=== PATIENT | female | born 1980 | race African-American/Black ===

== ENCOUNTER 2016-12-21 16:36 | Day surgery (SDC) | payer BC, OTHER ==
[2016-12-21 16:58] VITALS: BP 121/69; PULSE 80; TEMP 98.2; BMI 36.5
[2016-12-21] MEDS ORDERED: IRON SUCROSE INJECTION 100 MG in SODIUM CHLORIDE 100 ML IVPB ONE (17:30)
== END 2016-12-21 18:40 | disposition home or self-care (01) ==
LOC: FINFUSION 16:36 → FM/S 16:41 → FINFUSION 18:40
PROVIDERS: ATTEND Internal Medicine Hematology & Oncology
PROC: 3E033GC Introduction of Other Therapeutic Substance into Peripheral Vein, Percutaneous Approach (ICD-10-PCS; principal; 2016-12-21)
DX: D50.9 Iron deficiency anemia, unspecified (principal)
CPT/HCPCS: 96365; J1756

== ENCOUNTER 2016-12-28 18:51 | Day surgery (SDC) | payer BC, OTHER ==
[2016-12-28 19:38] VITALS: BP 128/78; PULSE 72; TEMP 98.7
[2016-12-28] MEDS ORDERED: IRON SUCROSE INJECTION 100 MG in SODIUM CHLORIDE 100 ML IVPB ONE (19:45)
== END 2016-12-28 20:10 | disposition home or self-care (01) ==
LOC: FINFUSION 18:51 → FM/S 18:53 → FINFUSION 20:10
PROVIDERS: ATTEND Internal Medicine Hematology & Oncology
PROC: 3E033GC Introduction of Other Therapeutic Substance into Peripheral Vein, Percutaneous Approach (ICD-10-PCS; principal; 2016-12-28)
DX: D64.9 Anemia, unspecified (principal)
CPT/HCPCS: 96365; J1756

== ENCOUNTER 2017-01-18 17:36 | Day surgery (SDC) | payer BC, OTHER ==
[2017-01-18 18:30] VITALS: BP 115/61; TEMP 98.4; BMI 39.5
[2017-01-18] MEDS ORDERED: IRON SUCROSE INJECTION 100 MG in SODIUM CHLORIDE 100 ML IVPB ONE (18:30)
[2017-01-18 18:35] VITALS: PULSE 82
== END 2017-01-18 18:45 | disposition home or self-care (01) ==
LOC: FINFUSION 17:36 → FM/S 17:37 → FINFUSION 18:45
PROVIDERS: ATTEND Internal Medicine Hematology & Oncology
PROC: 3E033GC Introduction of Other Therapeutic Substance into Peripheral Vein, Percutaneous Approach (ICD-10-PCS; principal; 2017-01-18)
DX: D64.9 Anemia, unspecified (principal)
CPT/HCPCS: 96365; J1756

== ENCOUNTER 2017-03-09 19:50 | Day surgery (SDC) | payer BC, OTHER ==
[2017-03-09 20:22] VITALS: BP 117/68; PULSE 93; TEMP 98.4
== END 2017-03-09 20:20 | disposition home or self-care (01) ==
LOC: FINFUSION 19:50 → FM/S 19:51 → FINFUSION 20:20
PROVIDERS: ATTEND Internal Medicine Hematology & Oncology
PROC: 3E033GC Introduction of Other Therapeutic Substance into Peripheral Vein, Percutaneous Approach (ICD-10-PCS; principal; 2017-03-09)
DX: D50.9 Iron deficiency anemia, unspecified (principal)
CPT/HCPCS: 96365

== ENCOUNTER 2017-03-14 17:25 | Emergency (ER) | payer BC, OTHER ==
--- NOTE | 2017-03-14 17:27 | PDOC ---
History of Present Illness - General History Source: Patient Exam Limitations: No Limitations <Steffany Vasquez - Last Filed: 03/14/17 18:37> - General History Source: Patient Exam Limitations: No Limitations - History of Present Illness Initial Comments: 03/14/17 17:46 The patient is a 37 year old female, with significant past medical history of right leg DVT (2006), anemia (iron infusions weekly), and lap band surgery (2009 ), who presents today complaining of 3 days of bilateral lower extremity swelling. The patient states that her lower extremities are not painful, but there is some discomfort. She notes that her legs are normal size in the morning after elevating them throughout the night. 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 She reports that her last DVT occurred after having a . Denies chest pain, SOB, palpitations. Denies recent travel. Denies use of oral contraceptives. Denies abdominal pain Denies fevers, chills. Allergies: erythromycin Surgical Hx: Lap band surgery. . Social Hx: No tobacco use PCP- Dr. Lilia casanova <Hetal Ambrose - Last Filed: 03/14/17 18:43> - General Chief Complaint: Edema Stated Complaint: LEG SWELLING Time Seen by Provider: 03/14/17 17:27 Past History - Past Medical History Anemia: Yes Asthma: No Cancer: No Cardiac Disorders: No CVA: No COPD: No CHF: No Dementia: No Diabetes: No GI Disorders: No Disorders: No HTN: No Hypercholesterolemia: No Liver Disease: No Seizures: No Thyroid Disease: No - Surgical History Abdominal Surgery: Yes (lap band 2009) Appendectomy: No Cardiac Surgery: No Cholecystectomy: No Lung Surgery: No Neurologic Surgery: No Orthopedic Surgery: No - Psycho/Social/Smoking Cessation Hx Anxiety: No Suicidal Ideation: No Smoking History: Never smoked Have you smoked in the past 12 months: No Hx Alcohol Use: No Drug/Substance Use Hx: No Substance Use Type: None Hx Substance Use Treatment: No <Steffany Vasquez - Last Filed: 03/14/17 18:37> <Hetal Ambrose - Last Filed: 03/14/17 18:43> - Past Medical History Allergies/Adverse Reactions: Allergies Allergy/AdvReac Type Severity Reaction Status Date / Time erythromycin base Allergy Unknown Verified 03/14/17 17:36 Home Medications: Ambulatory Orders NK [No Known Home Medication] 03/14/17 Review of Systems - Review of Systems Able to Perform ROS?: Yes Comments:: 03/14/17 17:46 GENERAL/CONSTITUTIONAL: No: fever, chills, weakness, loss of appetite. HEAD, EYES, EARS, NOSE AND THROAT: No: change in vision, ear pain, discharge, sore throat, throat swelling. CARDIOVASCULAR: No: chest pain, lightheadedness, palpitations, syncope RESPIRATORY: No: cough, shortness of breath, wheezing, hemoptysis, stridor. GASTROINTESTINAL: No: nausea, vomiting, abdominal cramping, diarrhea, rectal bleeding, constipation. GENITOURINARY: No: dysuria, hematuria, frequency, urgency, flank pain. MUSCULOSKELETAL: Yes: bilateral lower extremity swelling No: back pain, neck pain, joint pain, muscle swelling or pain SKIN: No: lesions, pallor, rash or easy bruising. NEUROLOGIC: No: headache, vertigo, paresthesias, weakness ENDOCRINE: No: unexplained weight gain or loss HEMATOLOGIC/LYMPHATIC: No: anemia, easy bleeding, swelling nodes <Hetal Ambrose - Last Filed: 03/14/17 18:43> *Physical Exam - Vital Signs Last Vital Signs Temp Pulse Resp BP Pulse Ox 98.0 F 78 15 129/82 99 03/14/17 17:26 03/14/17 17:26 03/14/17 17:26 03/14/17 17:26 03/14/17 17:26 - Physical Exam Comments: 03/14/17 17:47 GENERAL: The patient is in no acute distress. HEAD: Normal with no signs of trauma. EYES: PERRLA, EOMI, sclera anicteric, conjunctiva clear. ENT: Ears normal, nares patent, oropharynx clear without exudates. Moist mucous membranes. NECK: Normal range of motion, supple without lymphadenopathy, JVD, or masses. LUNGS: Breath sounds equal, clear to auscultation bilaterally. No wheezes, and no crackles. HEART:Regular rate and rhythm, normal S1 and S2 without murmur, rub or gallop. ABDOMEN: Soft, nontender, normoactive bowel sounds. No guarding, no rebound. EXTREMITIES: 3 + pitting edema up to the knees bilaterally. Normal range of motion. No clubbing or cyanosis. No erythema, or tenderness. NEUROLOGICAL: Cranial nerves II through XII grossly intact. Normal speech. No focal neurological deficits. MUSCULOSKELETAL: Back nontender to palpation, no CVA tenderness SKIN: Warm, Dry, normal turgor, no rashes or lesions noted. <Hetal Ambrose - Last Filed: 03/14/17 18:43> ED Treatment Course - RADIOLOGY Radiograph Interpretation: 03/14/17 18:43 EXAM#: TYPE/EXAM: RESULT: [id number] US/DUPLEX VASCUL US-2LEGS Bilateral leg edema. Rule out DVT. Bilateral leg Doppler venous ultrasound Grayscale, pulsed Doppler and color Doppler interrogation of both lower extremities deep venous system was performed. The common femoral vein, superficial femoral vein, popliteal and posterior tibial vein were identified, bilaterally with a normal phasic wave form, adequate compressibility and adequate response to augmentation. Visualized portion of the greater saphenous and deep femoral vein are patent No Suero's cyst is identified in the popliteal fossa, bilaterally. Impression: There is no evidence of deep venous thromboses in both lower extremities. Reported By: Nino Goldberg MD 03/14/17 182 <Hetal Ambrose - Last Filed: 03/14/17 18:43> Medical Decision Making - Medical Decision Making 03/14/17 17:27 A portion of this note was documented by scribe services under my direction. I have reviewed the details of the note, within reason, and agree with the documentation with the following case summary and management plan written by me. 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 and is on her feet for long periods of time No pain No recent travel No OCPs No tobacco use No h/o heart disease or heart failure No renal insufficiency or renal failure Will check US Pt Urine appears cloudy, will send UA 03/14/17 18:38 Duplex negative Pt symptoms likely related to dependent edema Will discharge to home <Steffany Vasquez - Last Filed: 03/14/17 18:37> *DC/Admit/Observation/Transfer - Discharge Dispostion Admit: No <Steffany Vasquez Last Filed: 03/14/17 18:37> - Attestations Scribe Attestion: 03/14/17 17:49 Documentation prepared by BABS Batista, acting as health care / medical job titles for Steffany Vasquez MD. <Hetal Ambrose - Last Filed: 03/14/17 18:43> Diagnosis at time of Disposition: Leg swelling, Dependent edema - Discharge Dispostion Disposition: HOME Condition at time of disposition: Stable - Referrals Referrals: Lilia Casanova [Primary Care Provider] - - Patient Instructions Printed Discharge Instructions: DI for Dependent Edema Additional Instructions: Ms. Medinaters Thank you for coming in to the ER Please follow up with your primary care physician Please elevate your legs as much as possible as this will help with your swelling If your legs remain swollen, please follow up with your primary care physician for repeat ultrasound If you develop chest pain, shortness of breath, palpitations, please come in to the ER - Post Discharge Activity Work/School Note: Back to Work
[2017-03-14 17:45] VITALS: BP 129/82; PULSE 78; TEMP 98; BMI 37.4
[2017-03-14 17:45] LABS: PH,URINE 6.5 (4.5-8); URINE APPEARANCE Cloudy; URINE BILIRUBIN Negative (NEGATIVE); URINE BLOOD Negative (NEGATIVE); URINE GLUCOSE (UA) Negative (NEGATIVE); URINE KETONE Negative (NEGATIVE); URINE LEUK ESTERASE Trace (NEGATIVE); URINE NITRITE Negative (NEGATIVE); URINE PROTEIN Negative (NEGATIVE); URINE UROBILINOGEN 1.0 E.U/dl (0.2-1.0)
[2017-03-14 17:47] LABS: URINE COLOR YELLOW
== END 2017-03-14 19:01 | disposition home or self-care (01) ==
LOC: FER 17:25
DX: R60.9 Edema, unspecified (principal); M79.89 Other specified soft tissue disorders
CPT/HCPCS: 81003; 84703; 87086; 93970-TC; 99282-25

== ENCOUNTER 2017-07-20 20:31 | Emergency (ER) | payer BC, OTHER ==
--- NOTE | 2017-07-20 20:33 | PDOC ---
History of Present Illness - History of Present Illness Initial Comments: 07/20/17 21:32 The patient is a 37 year old female, with a significant past medical history of right leg DVT (2006), anemia, lap band surgery (2009), who presents to the emergency department with persistent increased urinary frequency and pressure despite taking over the counter Azo for the past 3 days. She states this feels just like her prior UTIs in the past. She presents for a prescription for something stronger than the OTC stuff. She reports she is currently on her menstrual period. She denies chest pain, shortness of breath, headache and dizziness. She denies fever, chills, nausea, vomit, diarrhea and constipation. She denies dysuria, urgency and hematuria. Allergies: erythromycin Surgical Hx: Lap band surgery. . Social Hx: No tobacco use PCP- Dr. Lilia john <Nika Coburn - Last Filed: 07/20/17 21:32> <Kary Marques - Last Filed: 07/21/17 01:37> - General Chief Complaint: Urinary Problem Stated Complaint: urinary freq Time Seen by Provider: 07/20/17 20:33 Past History <Nika Coburn - Last Filed: 07/20/17 21:32> - Past Medical History Anemia: Yes Asthma: No Cancer: No Cardiac Disorders: No CVA: No COPD: No CHF: No Dementia: No Diabetes: No GI Disorders: No Disorders: No HTN: No Hypercholesterolemia: No Liver Disease: No Seizures: No Thyroid Disease: No - Surgical History Abdominal Surgery: Yes (lap band 2009) Appendectomy: No Cardiac Surgery: No Cholecystectomy: No Lung Surgery: No Neurologic Surgery: No Orthopedic Surgery: No - Suicide/Smoking/Psychosocial Hx Smoking History: Never smoked Have you smoked in the past 12 months: No Hx Alcohol Use: No Drug/Substance Use Hx: No Substance Use Type: None Hx Substance Use Treatment: No <Kary Marques - Last Filed: 07/21/17 01:37> - Past Medical History Allergies/Adverse Reactions: Allergies Allergy/AdvReac Type Severity Reaction Status Date / Time erythromycin base Allergy Unknown Verified 07/20/17 20:32 Home Medications: Ambulatory Orders Ciprofloxacin [Cipro -] 250 mg PO BID #10 tablet 07/20/17 Review of Systems - Review of Systems Able to Perform ROS?: Yes Comments:: 07/20/17 21:33 CONSTITUTIONAL: Absent: fever, chills, diaphoresis, generalized weakness, malaise, loss of appetite HEENT: Absent: rhinorrhea, nasal congestion, throat pain, throat swelling, difficulty swallowing,mouth swelling, ear pain, eye pain, visual Changes CARDIOVASCULAR: Absent: chest pain, syncope, palpitations, irregular heart rate, lightheadedness , peripheral edema RESPIRATORY: Absent: cough, shortness of breath, dyspnea with exertion, orthopnea, wheezing, stridor, hemoptysis GASTROINTESTINAL: Absent: abdominal pain, abdominal distension, nausea, vomiting, diarrhea, constipation, melena, hematochezia GENITOURINARY: (+) increased frequency and pressure on urination. Absent: dysuria, urgency, hesitancy, hematuria, flank pain, genital pain MUSCULOSKELETAL: Absent: myalgia, arthralgia, joint swelling SKIN: Absent: rash, itching, pallor HEMATOLOGIC/IMMUNOLOGIC: Absent: easy bleeding, easy bruising, lymphadenopathy, frequent infections ENDOCRINE: Absent: unexplained weight gain, unexplained weight loss, heat intolerance, cold intolerance NEUROLOGIC: Absent: headache, focal weakness or paresthesias, dizziness, unsteady gait, seizure, mental status changes, bladder or bowel incontinence PSYCHIATRIC: Absent: anxiety, depression, suicidal or homicidal ideation, hallucinations. <Nika Coburn - Last Filed: 07/20/17 21:32> *Physical Exam - Vital Signs Last Vital Signs Temp Pulse Resp BP Pulse Ox 98.3 F 75 16 112/74 100 07/20/17 20:31 07/20/17 20:31 07/20/17 20:31 07/20/17 20:31 07/20/17 20:31 - Physical Exam Comments: 07/20/17 21:34 GENERAL: The patient is awake, alert, and fully oriented, in no acute distress. HEAD: Normal with no signs of trauma. EYES: Pupils equal, round and reactive to light, extraocular movements intact, sclera anicteric, conjunctiva clear with no pallor. ENT: Ears normal, nares patent, oropharynx clear without exudates. Moist mucous membranes. NECK: Normal range of motion, supple without lymphadenopathy, JVD, or masses. LUNGS: Breath sounds equal, clear to auscultation bilaterally. No wheeze/ crackles. HEART: Regular rate and rhythm, normal S1 and S2 without murmur or rub. ABDOMEN: Soft/nontender/nondistended. BS wnl. No guarding or rebound. No palpable masses. No hepatosplenomegaly. EXTREMITIES: Normal range of motion, no edema. No clubbing or cyanosis. No cords , erythema, or tenderness. MUSCULOSKELETAL: No CVA tenderness. NEUROLOGICAL: Cranial nerves II through XII grossly intact. Normal speech, normal gait. PSYCH: Normal mood, normal affect. SKIN: Warm, Dry, normal turgor, no rashes or lesions noted. <Nika Coburn - Last Filed: 07/20/17 21:32> ED Treatment Course - ADDITIONAL ORDERS Additional order review: Laboratory Results 07/20/17 20:36 Urine Color Yellow Urine Appearance Clear Urine pH 6.0 Ur Specific [place] >= 1.030 H Urine Protein 1+ H Urine Glucose (UA) Negative Urine Ketones Trace Urine Blood 2+ H Urine Nitrite Negative Urine Bilirubin Negative Urine Urobilinogen 0.2 Urine HCG, Qual Negative <Nika Coburn - Last Filed: 07/20/17 21:32> Progress Note - Progress Note Progress Note: Documentation has been prepared under my direction and personally reviewed by me in its entirety. I attest that this documented accurately reflects all work, treatment, procedures and medical decision making performed by me. <Kary Marques - Last Filed: 07/21/17 01:37> Medical Decision Making - Medical Decision Making As noted above, this 37-year-old woman presents with a few day history of urinary frequency/urgency. She denies dysuria/hematuria or nausea/back pain/ fever. She states that symptoms are consistent with previous UTI symptoms. Exam as noted. Urinalysis shows red blood cells/white blood cells and few bacteria/few epithelial cells. Urine culture and sensitivity pending Patient will be started on ciprofloxacin 250 mg twice a day for 5 days. First dose given here in the emergency room. Patient advised to drink plenty of fluids and to return to the ER if she has worsening urinary frequency or experiences back pain/vomiting/fever. <Kary Marques - Last Filed: 07/21/17 01:37> *DC/Admit/Observation/Transfer - Attestations Scribe Attestion: 07/20/17 21:34 Documentation prepared by Nika Coburn, acting as center medical and lab director for Kary Marques MD <Nika Coburn - Last Filed: 07/20/17 21:32> <Kary Marques - Last Filed: 07/21/17 01:37> Diagnosis at time of Disposition: UTI (urinary tract infection) Qualifiers: Urinary tract infection type: acute cystitis Hematuria presence: without hematuria Qualified Code(s): N30.00 - Acute cystitis without hematuria - Discharge Dispostion Disposition: HOME Condition at time of disposition: Stable - Prescriptions Prescriptions: Ciprofloxacin [Cipro -] 250 mg PO BID #10 tablet - Patient Instructions Printed Discharge Instructions: DI for Urinary Tract Infection (UTI) Additional Instructions: Drink plenty of water Ciprofloxacin 250 mg twice a day for 5 days Return to ER if you have fever/chills, back pain or vomiting Follow-up with your general doctor within the next week
[2017-07-20 20:39] VITALS: BP 112/74; PULSE 75; TEMP 98.3; BMI 38.6
[2017-07-20 20:45] LABS: URINE APPEARANCE Clear; URINE BILIRUBIN Negative (NEGATIVE); URINE BLOOD 2+ (NEGATIVE); URINE COLOR YELLOW; URINE GLUCOSE (UA) Negative (NEGATIVE); URINE KETONE Trace (NEGATIVE); URINE LEUK ESTERASE Negative (NEGATIVE); URINE NITRITE Negative (NEGATIVE); URINE PROTEIN 1+ (NEGATIVE); URINE UROBILINOGEN 0.2 (0.2-1.0)
[2017-07-20 21:32] LABS: URINE RBC 15-30 /hpf (0-3)
[2017-07-20 21:33] LABS: URINE BACTERIA FEW /hpf (NEGATIVE)
[2017-07-20] MEDS ORDERED: CIPROFLOXACIN 250 MG TABLET (RESTRICTED TO ID) PO ONE ×2 (21:36→21:43)
== END 2017-07-20 21:45 | disposition home or self-care (01) ==
LOC: FER 20:31
DX: N30.00 Acute cystitis without hematuria (principal); Z86.718 Personal history of other venous thrombosis and embolism; Z98.84 Bariatric surgery status
CPT/HCPCS: 81003; 81015; 84703; 87086; 99282-25

== ENCOUNTER 2018-10-01 23:28 | Emergency (ER) | payer BC, OTHER ==
--- NOTE | 2018-10-01 23:31 | PDOC ---
History of Present Illness - General History Source: Patient Exam Limitations: No Limitations - History of Present Illness Initial Comments: 10/01/18 23:56 The patient is a 38 year old female, with a significant past medical history of anemia, superficial DVTs, and DVT (07 after ), who presents to the emergency department with, left upper extremity pain. Patient was previously at urgent care who advised her to report to the ER for evaluation for possible DVT of the LUE. 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 During her admission, she had a negative head CT, abdominal CT with contrast, and received heparin injections. She endorses that she has had multiple superficial DVTs and one DVT thus, prompting her visit to the ER tonight. She denies any pain to the bilateral LE or right UE. She denies recent fevers, chills, headache or dizziness. She denies recent nausea, vomit, diarrhea or constipation. She denies recent dysuria, frequency, urgency or hematuria. She denies recent chest pain or shortness of breath. Allergies: erythromycin Past surgical history: Lap band surgery. . Social history: Nonsmoker. Denies EtOH use and recreational drug use. Primary Care Physician: Dr. Lilia Casanova <Kristine Cornell - Last Filed: 10/01/18 23:58> <Mundo Rojas - Last Filed: 10/02/18 01:42> - General Stated Complaint: DVT IN LEFT ARM Time Seen by Provider: 10/01/18 23:30 Past History <Kristine Cornell - Last Filed: 10/01/18 23:58> - Past Medical History Anemia: Yes Asthma: No Cancer: No Cardiac Disorders: No CVA: No COPD: No CHF: No Dementia: No Diabetes: No GI Disorders: No Disorders: No HTN: No Hypercholesterolemia: No Liver Disease: No Seizures: No Thyroid Disease: No - Surgical History Abdominal Surgery: Yes (lap band 2009) Appendectomy: No Cardiac Surgery: No Cholecystectomy: No Lung Surgery: No Neurologic Surgery: No Orthopedic Surgery: No - Suicide/Smoking/Psychosocial Hx Smoking History: Never smoked Have you smoked in the past 12 months: No Hx Alcohol Use: No Drug/Substance Use Hx: No Substance Use Type: None Hx Substance Use Treatment: No <Mundo Rojas - Last Filed: 10/02/18 01:42> - Past Medical History Allergies/Adverse Reactions: Allergies Allergy/AdvReac Type Severity Reaction Status Date / Time erythromycin base Allergy Unknown Verified 07/20/17 20:32 IV contrast Allergy Uncoded 10/01/18 23:56 Home Medications: Ambulatory Orders Famotidine [Pepcid] 20 mg PO DAILY 10/01/18 Review of Systems - Review of Systems Able to Perform ROS?: Yes Comments:: 10/01/18 23:57 GENERAL/CONSTITUTIONAL: No fever or chills. No weakness. HEAD, EYES, EARS, NOSE AND THROAT: No change in vision. No ear pain or discharge. No sore throat. CARDIOVASCULAR: No chest pain or shortness of breath. RESPIRATORY: No cough, wheezing, or hemoptysis. GASTROINTESTINAL: No nausea, vomiting, diarrhea or constipation. GENITOURINARY: No dysuria, frequency, or change in urination. +MUSCULOSKELETAL: LUE pain. SKIN: No rash NEUROLOGIC: No headache, vertigo, loss of consciousness, or change in strength/ sensation. ENDOCRINE: No increased thirst. No abnormal weight change. HEMATOLOGIC/LYMPHATIC: No anemia, easy bleeding, or history of blood clots. ALLERGIC/IMMUNOLOGIC: No hives or skin allergy. All Other Systems: Reviewed and Negative <Kristine Cornell - Last Filed: 10/01/18 23:58> *Physical Exam - Vital Signs Last Vital Signs Temp Pulse Resp BP Pulse Ox 98.3 F 100 H 14 120/75 100 10/01/18 23:43 10/01/18 23:43 10/01/18 23:43 10/01/18 23:43 10/01/18 23:43 <Kristine Cornell - Last Filed: 10/01/18 23:58> Moderate Sedation - Procedure Monitoring Vital Signs: Procedure Monitoring Vital Signs Temperature 98.3 F 10/01/18 23:43 Pulse Rate 100 H 10/01/18 23:43 Respiratory Rate 14 10/01/18 23:43 Blood Pressure 120/75 10/01/18 23:43 O2 Sat by Pulse Oximetry (%) 100 10/01/18 23:43 <Kristine Cornell - Last Filed: 10/01/18 23:58> Medical Decision Making - Medical Decision Making 10/01/18 23:58 GENERAL: Awake, alert, and fully oriented, in no acute distress HEAD: No signs of trauma EYES: PERRLA, EOMI, sclera anicteric, conjunctiva clear ENT: Auricles normal inspection, hearing grossly normal, nares patent, oropharynx clear without exudates. Moist mucosa NECK: Normal ROM, supple, no lymphadenopathy, JVD, or masses LUNGS: Breath sounds equal, clear to auscultation bilaterally. No wheezes, and no crackles HEART: Regular rate and rhythm, normal S1 and S2, no murmurs, rubs or gallops ABDOMEN: Soft, nontender, normoactive bowel sounds. No guarding, no rebound. No masses EXTREMITIES: LUE: Tender cord over bicep. NEUROLOGICAL: Cranial nerves II through XII grossly intact. Normal speech, normal gait SKIN: Warm, Dry, normal turgor, no rashes or lesions noted. <Kristine Cornell - Last Filed: 10/01/18 23:58> - Medical Decision Making 10/02/18 01:39 POC US: thrombosis in superficial vein that does not extend to deep system a/p superficial thrombophlebitis nsaids warm compresses <Mundo Rojas - Last Filed: 10/02/18 01:42> *DC/Admit/Observation/Transfer - Attestations Scribe Attestion: 10/01/18 23:57 Documentation prepared by Kristine Cornell, acting as medical imaging tech for Mundo Rojas MD. <Kristine Cornell - Last Filed: 10/01/18 23:58> <Mundo Rojas - Last Filed: 10/02/18 01:42> Diagnosis at time of Disposition: Superficial thrombophlebitis Qualifiers: Superficial thrombophlebitis-Involved body area: upper extremity Laterality: left Qualified Code(s): I80.8 - Phlebitis and thrombophlebitis of other sites - Discharge Dispostion Disposition: HOME Condition at time of disposition: Good - Patient Instructions Printed Discharge Instructions: DI for Superficial Thrombophlebitis
[2018-10-01 23:46] VITALS: BP 120/75; PULSE 100; TEMP 98.3; BMI 30.4
[2018-10-01] MEDS ORDERED: IBUPROFEN 400 MG TABLET (FP) PO ONE ×2 (23:51→23:52)
== END 2018-10-01 23:59 | disposition home or self-care (01) ==
LOC: FER 23:28
DX: I80.8 Phlebitis and thrombophlebitis of other sites (principal)
CPT/HCPCS: 99282-25